=== PATIENT | male | born 1980 | race Caucasian/White ===

== ENCOUNTER 2022-05-19 04:06 | Emergency (ER) | payer OTHER ==
[~2022-05-19] VITALS: Ht 162.5 cm; Wt 78.5 kg
[2022-05-19 04:13] VITALS: BP 117/76
[2022-05-19] MEDS ORDERED: IBUPROFEN 800 MG (MOTRIN) TAB PO STA (04:35)
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
[2022-05-19] MEDS ORDERED: HYDROcodone/APAP 5 MG/325 MG (LORTAB) TAB PO STA (05:04)
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
== END 2022-05-19 05:13 | disposition home or self-care (01) ==
LOC: ER FS 04:12
DX: S22.42XA Multiple fractures of ribs, left side, initial encounter for closed fracture (principal); S42.022A Displaced fracture of shaft of left clavicle, initial encounter for closed fracture; S60.512A Abrasion of left hand, initial encounter; S60.511A Abrasion of right hand, initial encounter; S00.81XA Abrasion of other part of head, initial encounter; F19.10 Other psychoactive substance abuse, uncomplicated; F17.210 Nicotine dependence, cigarettes, uncomplicated; Z28.310 Unvaccinated for COVID-19; Y09 Assault by unspecified means
CPT/HCPCS: 71101; 73030